=== PATIENT | female | born 1995 | race Caucasian/White ===

== ENCOUNTER 2020-03-18 06:58 | Observation (INO) | payer OTHER, SELFPAY ==
[~2020-03-18] VITALS: Ht 160 cm; Wt 89.4 kg
[2020-03-18 07:00] VITALS: Ht 160 cm; Wt 89.4 kg
--- NOTE | 2020-03-18 07:21 | NUR ---
PT BIB SELF C/C ABD PAIN WITH N/V X 6 DAYS STS COVID + STS ANGUIANO WELL AWAITING FOR DR BRIANNA FAN
--- NOTE | 2020-03-18 08:00 | NUR ---
TAKEN TO RADIOLOGY FOR CT
--- NOTE | 2020-03-18 08:50 | NUR ---
PLEASE ENTER FULL NAMES OF AUTOMATIC LATHE TENDER/RN Patient data collected by (AUTOMATIC LATHE TENDER):Jane GREGG Assessment reviewed and completed by (RN): Gustavo ALBARRAN
[2020-03-18 08:58] LABS: BASOPHIL % 0.4 % (0-2); PLATELET COUNT 319 x10^3mcL (130-400); RED CELL DISTRIBUTION WIDTH 13.3 % (11.5-14.5)
[2020-03-18 09:18] LABS: microscopic required? YES; urine erythrocyte 1+ (NEGATIVE)
[2020-03-18 09:42] LABS: ALBUMIN 4.4 g/dL (3.4-5.0); ALKALINE PHOSPHATASE 63 U/L (46-116); ALT/SGPT 57 U/L (14-59); AST/SGOT 32 U/L (15-37); BILIRUBIN TOTAL 0.99 mg/dL (0.20-1.00); CALCIUM 9.4 mg/dL (8.5-10.1); CARBON DIOXIDE 25.6 mmol/L (21-32); CHLORIDE SERUM 99 mmol/L (98-107); GFR1 > 60 mL/min; GLUCOSE SERUM 162 mg/dL (74-106); LIPASE 392 IU/L (73-393); SODIUM SERUM 138 mmol/L (136-145); TOTAL PROTEIN, SERUM 8.1 g/dL (6.4-8.2)
[2020-03-18 09:44] LABS: POTASSIUM SERUM 2.7 mmol/L (3.5-5.1)
--- NOTE | 2020-03-18 10:42 | NUR ---
MEDICATED PT PER MD ORDERS SEE EMAR. PT VERBALIZED UNDERSTANDING OF MEDIATION TEACHING.
--- NOTE | 2020-03-18 11:40 | NUR ---
XRAY AT BEDSIDE
--- NOTE | 2020-03-18 15:09 | NUR ---
REC'D PT FROM OR VIA BED ACCOMPANIED BY RN. PT ADM WITH CC OF VOMITING X6 DAYS. S/P LAP APPE. ABD INCISIONS X4 WITH MAINOR COVERED WITH BANDAIDS CDI. AAOX4, SPEECH CLEAR, FOLLOWS COMMANDS. MED SURG. DENIES CP, DIZZINESS, OR PALPIATIONS. DENIES RESP DISTRESS OR SOB. BREATHING EVEN/UNLABORED ON RA. ABD SOFT/ROUND. DENIES ABD PAIN OR N/V. REPORTS TENDERNESS UPON PALPATIONS. BOWEL SOUNDS HYPOACTIVE. VOIDING FREELY. AMBULATORY. IV TO RAC AND LAC, SITES WNL. ORIENTED TO DEVICES AND SURROUNDINGS. CALL LIGHT WITHIN REACH, BED AT LOWEST POSITION. WILL CONTINUE TO MONITOR.
[2020-03-18 15:17] VITALS: BP 140/93
--- NOTE | 2020-03-18 16:30 | NUR ---
REC'D CALL BACK FROM DR. ELLIOTT. REQUESTED CLEAR LIQUID DIET S/P LAP APPE. CLEAR LIQUID OKAY PER ALSO INQUIRED IF K 2.7 TO BE RECHECKED AFTER GIVING 60 MEQ K TOTAL. STATED OKAY TO JUST RECHECK FROM AM LABS.
[2020-03-18 16:47] VITALS: BP 143/89
--- NOTE | 2020-03-18 16:52 | NUR ---
PT C/O ABD CRAMPING 09/25. NORCO GIVEN PER ORDER.
--- NOTE | 2020-03-18 17:46 | NUR ---
PT STATES HER PAIN IS "BETTER" S/P NORCO. C/O NAUSEA, NO EMESIS. ZOFRAN GIVEN PER ORDER.
--- NOTE | 2020-03-18 19:53 | NUR ---
Awake and verbally responsive. No respiratory distress noted on room air. Medicated as ordered for c/o abd'l.pain. On and off n/v. Abdominal incisions x4 with large bandaids intact. Will cont.to monitor. Call light within reach. Dangled a this time.
[2020-03-18 21:15] VITALS: BP 129/104
--- NOTE | 2020-03-19 04:23 | NUR ---
Afebrile. On and off n/v. Zofran or reglan IV given as ordered. Morphine IV given as ordered for c/o abd'l.pain with help. Ambulated. Voided. (-)flatus/bm.
[2020-03-19 05:45] VITALS: BP 149/104
[2020-03-19 07:18] LABS: ALKALINE PHOSPHATASE 52 U/L (46-116); ALT/SGPT 46 U/L (14-59); AST/SGOT 18 U/L (15-37); CARBON DIOXIDE 27.9 mmol/L (21-32); CHLORIDE SERUM 98 mmol/L (98-107); GFR1 > 60 mL/min; GLUCOSE SERUM 138 mg/dL (74-106); PHOSPHOROUS 4.5 mg/dL (2.5-4.9); POTASSIUM SERUM 3.3 mmol/L (3.5-5.1); SODIUM SERUM 137 mmol/L (136-145); TOTAL PROTEIN, SERUM 7.2 g/dL (6.4-8.2)
[2020-03-19 08:28] VITALS: BP 130/95
[2020-03-19 09:54] LABS: BASOPHIL % 0.4 % (0-2); PLATELET COUNT 393 x10^3mcL (130-400); RED CELL DISTRIBUTION WIDTH 13.5 % (11.5-14.5)
[2020-03-19 12:13] VITALS: BP 128/92
[2020-03-19 16:31] VITALS: BP 142/111
[2020-03-19 20:47] VITALS: BP 157/99
--- NOTE | 2020-03-20 02:54 | NUR ---
A/O X4 AND IN NO ACUTE DISTRESS. HOWEVER, PT IS ANXIOUS AND APPEARS TO BE MEDICATION SEEKING. MORPHINE 4MG GIVEN FOR 5/10 PAIN. PT WITH N/V AND C/O THAT SHE'S HAD THIS FOR 6 DAYS AND IT WILL NOT STOP. EXPLAIN TO PT THAT SHE APPEARS TO BE VERY ANXIOUS, AND THAT SHE SHOULD TRY RELAXATION TECHNIQUE TO HELP HER SYMPTOMS. ZOFRAN AND REGLAN GIVEN FOR NAUSEA. COLACE, SENNA, AND MIRALAX STARTED. PT STATED SHE HAS NOT HAD BM IN 6 DAYS. CONTINUE ON CLEAR LIQUID DIET. WILL CONTINUE TO MONITOR.
[2020-03-20 05:46] VITALS: BP 150/106
[2020-03-20 07:14] LABS: BASOPHIL % 0.6 % (0-2); PLATELET COUNT 323 x10^3mcL (130-400); RED CELL DISTRIBUTION WIDTH 13.8 % (11.5-14.5)
--- NOTE | 2020-03-20 07:30 | NUR ---
ROUNDING PT AWAKE AND CLAIMED SHE HAD URINARY INCONTINENCE IN BED BUT PT IS AMBULATORY TO BATHROOM , EXPLAIN TO PT ABOUT PLAN OF CARE , S/P LAP LULY 2ND DAY POST OP , PT C/O ABDOMINAL PAIN OVER RT LOWER QUADRANT AREA ON AND OFF DESCRIBED SHARP TYPE OF PAIN , PT ON CLEAR LEAR LIQUID DIET TAKEN FAIRLY BUT ABLE TO KEEP IT DOWN DUE PERSISTENT NAUSEA AND VOMITTING .
[2020-03-20 07:42] LABS: ALKALINE PHOSPHATASE 63 U/L (46-116); ALT/SGPT 49 U/L (14-59); AST/SGOT 39 U/L (15-37); BILIRUBIN TOTAL 1.82 mg/dL (0.20-1.00); CARBON DIOXIDE 28.8 mmol/L (21-32); CHLORIDE SERUM 96 mmol/L (98-107); CREATININE SERUM 0.9 mg/dL (0.6-1.0); GFR1 > 60 mL/min; GLUCOSE SERUM 162 mg/dL (74-106); PHOSPHOROUS 2.8 mg/dL (2.5-4.9); POTASSIUM SERUM 3.3 mmol/L (3.5-5.1); SODIUM SERUM 136 mmol/L (136-145); TOTAL PROTEIN, SERUM 7.5 g/dL (6.4-8.2)
[2020-03-20 08:48] VITALS: BP 139/109
--- NOTE | 2020-03-20 11:09 | NUR ---
PMD TOBIN ELLIOTT NOTIFIED AND CASE PRESENTED ABOUT PT PERSISTENT VOMITTING OF CLEAR LIQUID DIET THAT PREVIOUSLY TAKEN AND PAIN PERSISTED WELL .MD IN THE HOUSE AND WILL PUT AN ORDER FOR PT , PT MADE AWARE AND REASSURED .
[2020-03-20 12:17] VITALS: BP 163/97
[2020-03-20 16:03] VITALS: BP 126/86
--- NOTE | 2020-03-20 17:59 | NUR ---
PT CONTINUE VOMITTING DESPITE MEDICATED WITH ZOFRAN AND REGLAN ALTERNATELY , NOW THIS TIME PT REQUEST FOR TORADOL MED TO BE ADMINISTERED.
--- NOTE | 2020-03-20 19:40 | NUR ---
PT. REPORT RECIEVED FROM DAY SHIFT NURSE, PT. RESTING IN BED W/ EYES CLOSED, RR EVEN AND UNLABORED ON RA, CHEST RISE SYMT, BED IN LOWEST POSITION, CALL LIGHT WITHIN REACH, SR UPX2, WILL CONT TO MONITOR.
[2020-03-20 20:26] VITALS: BP 137/100
--- NOTE | 2020-03-21 04:57 | NUR ---
PT. RESTING IN BED W/ EYES CLOSED, RR EVEN AND UNLABORED ON RA, CHEST RISE SYMT, ALL SAFETY MEASURES IN PLACE, WILL CONT TO MONITOR.
[2020-03-21 06:27] VITALS: BP 130/79
--- NOTE | 2020-03-21 06:50 | NUR ---
PT. IN BED RESTING, RR EVEN AND UNLABORED ON RA, CHEST RISE SYMT, ALL SAFETY MEASURES IN PLACE, WILL ENDORSE TO DAY SHIFT NURSE.
--- NOTE | 2020-03-21 07:30 | NUR ---
PT IS AWAKE AND SEEMINGLY IN NO APPARENT DISTRESS , EXPLAIN TO PT ABOUT PLAN OF CARE AND AMBULATING AROUND THE HALLWAY , DENIES ANY DISCOMFOT. SURGEON MD FARRAR AT DEPT AND REVIEW PT CURRENT LAB AND TO SEE PT , KUB RESULTS UNREMARKABLE.
[2020-03-21 08:33] LABS: BASOPHIL % 0.8 % (0-2); PLATELET COUNT 323 x10^3mcL (130-400); RED CELL DISTRIBUTION WIDTH 13.6 % (11.5-14.5)
[2020-03-21 08:38] LABS: ALBUMIN 3.9 g/dL (3.4-5.0); ALKALINE PHOSPHATASE 67 U/L (46-116); ALT/SGPT 46 U/L (14-59); AST/SGOT 25 U/L (15-37); BILIRUBIN TOTAL 1.43 mg/dL (0.20-1.00); CALCIUM 9.1 mg/dL (8.5-10.1); CARBON DIOXIDE 29.7 mmol/L (21-32); CHLORIDE SERUM 94 mmol/L (98-107); CREATININE SERUM 0.8 mg/dL (0.6-1.0); GFR1 > 60 mL/min; GLUCOSE SERUM 148 mg/dL (74-106); PHOSPHOROUS 3.3 mg/dL (2.5-4.9); POTASSIUM SERUM 3.4 mmol/L (3.5-5.1); SODIUM SERUM 132 mmol/L (136-145); TOTAL PROTEIN, SERUM 7.5 g/dL (6.4-8.2)
[2020-03-21 09:06] VITALS: BP 155/107
[2020-03-21 12:52] VITALS: BP 156/103
[2020-03-21] MEDS ORDERED: ACETAMINOPHEN-H1 TA1 PO (13:05)
[2020-03-21] MEDS ORDERED: COL100 PO (13:06)
[2020-03-21] MEDS ORDERED: REGLAN10 M1 PO (13:07)
[2020-03-21 13:16] VITALS: BP 156/103
--- NOTE | 2020-03-21 15:45 | NUR ---
IV DISCONTINUED AND NO BLEEDING NO HEMATOMA NOTED .
--- NOTE | 2020-03-21 16:01 | NUR ---
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
== END 2020-03-21 15:59 | disposition home or self-care (01) ==
LOC: ED 06:58 → MU 10:20
PROVIDERS: Emergency Medicine; ADMIT Hospitalist; ATTEND Hospitalist
DX: K35.80 Unspecified acute appendicitis (principal); R11.2 Nausea with vomiting, unspecified; E87.6 Hypokalemia
CPT/HCPCS: G0378; J0330; J0690; J0694; J1170; J1885; J2270; J2405; J2704; J2765; J3010; J3475; J3480; J3490; J7030; J7120